=== PATIENT | female | born 1970 | race Caucasian/White ===

== ENCOUNTER 2022-01-27 15:32 | Emergency (ER) | payer BC ==
[~2022-01-27] VITALS: Ht 167.6 cm; Wt 56.7 kg
== END 2022-01-27 16:56 | disposition home or self-care (01) ==
LOC: ER 15:32
DX: S90.31XA Contusion of right foot, initial encounter (principal); W20.8XXA Other cause of strike by thrown, projected or falling object, initial encounter; Z88.5 Allergy status to narcotic agent
CPT/HCPCS: 73610